=== PATIENT | male | born 1950 | race Caucasian/White ===

== ENCOUNTER → 2020-06-05 | Outpatient (CLI) | payer MEDICARE, OTHER ==
[~2020-06-05] MED LIST: ALBU2.5V8 IH; FEXO60TA10 PO; FINA5TAB4 PO; FLUT16SP21 NS; GABA-586 PO; IPRA3AMP29 NEB; LORA-254 PO; MAGN250T2 PO; NITR0.4T22 SL; OMEP20TA8 PO; POTA20PA30 PO; PRAV80TA2 PO; TAMS0.4C97 PO; VENL150T PO; ZOLP12.56 PO
== END ==
LOC: LAB 10:05
PROVIDERS: ATTEND Registered Nurse
DX: Z20.828 Contact with and (suspected) exposure to other viral communicable diseases (principal)
CPT/HCPCS: U0003-CS

== ENCOUNTER → 2020-06-09 | Day surgery (SDC) | payer MEDICARE, OTHER ==
[~2020-06-09] MED LIST changes: +CARV12.5 PO; +EPINEPHrine 30 MG/30 ML VIAL ONE; +IPRATRPIUM/ALBUTEROL 0.5/2.5MG 3 ML NEBU. NEB PRN; +IV RINGERS SOLUTION,LACTATED 1,000 ML IV SCH; +MIDAZOLAM HCL PF 2 MG/2 ML VIAL. IV ONE; +ONDANSETRON PF 4 MG/2 ML VIAL. IV PRN; +PROPOFOL 10,000 MCG/ML (20ML) VIAL IV ONE; +VALS1TAB28 PO
[2020-06-09 08:31] VITALS: BP 111/73
== END | disposition home or self-care (01) ==
LOC: SURG 06:29
PROVIDERS: ATTEND Emergency Medicine
DX: Z12.11 Encounter for screening for malignant neoplasm of colon (principal); D00.2 Carcinoma in situ of stomach; D37.9 Neoplasm of uncertain behavior of digestive organ, unspecified; K31.7 Polyp of stomach and duodenum; K64.0 First degree hemorrhoids; Z88.8 Allergy status to other drugs, medicaments and biological substances; Z79.899 Other long term (current) drug therapy
CPT/HCPCS: 43239; 43450; 45380; 88305; 88341; 88342; 88360; J2704; J7120

== ENCOUNTER 2021-05-27 04:49 | Inpatient (IN) | payer MEDICARE, OTHER ==
[~2021-05-27] VITALS: Ht 170.2 cm; Wt 97.6 kg
[~2021-05-27 04:49] MED LIST changes: -EPINEPHrine 30 MG/30 ML VIAL ONE; -IPRATRPIUM/ALBUTEROL 0.5/2.5MG 3 ML NEBU. NEB PRN; -IV RINGERS SOLUTION,LACTATED 1,000 ML IV SCH; -MIDAZOLAM HCL PF 2 MG/2 ML VIAL. IV ONE; -ONDANSETRON PF 4 MG/2 ML VIAL. IV PRN; -PROPOFOL 10,000 MCG/ML (20ML) VIAL IV ONE
[2021-05-27] MEDS ORDERED: DEXAMETHASONE SOD PHOS 10 MG/ML VIAL. IV ONE (05:00)
[2021-05-27] MEDS ORDERED: IV NORMAL SALINE 1,000ML 1,000 ML IV ONE (05:00)
--- NOTE | 2021-05-27 05:09 | PHYS DOC ---
Past History Past Medical History: Asthma, COPD, Hypertension Past Surgical History: No Surgical History Smoking: Quit Greater Than 1 Year Alcohol Use: None Drug Use: None General Adult EDM: Chief Complaint: SHORTNESS OF BREATH HPI: HPI: 70-year-old male with past medical history of COPD presents via EMS with report of progressive shortness of breath. Patient with history of recent COVID-19 positive result 2 weeks ago. Patient required admission to [place]. Reports was released approximately 1 week ago. Patient reports interval worsening of symptoms since discharge. Patient feels unwell. Denies recent smoking. Denies fever or chills. Denies trauma. Denies leg swelling or calf tenderness. EMS reports finding patient with low O2 sat down to 86% on RA. Patient denies use of supplemental O2 at home. Review of Systems: Review of Systems: Constitutional: Denies fever or chills; reports generalized malaise Eyes: Denies redness or eye pain HENT: Denies nasal congestion or sore throat Respiratory: Reports cough and shortness of breath Cardiovascular: Denies chest pain or palpitations GI: Denies abdominal pain, nausea, or vomiting : Denies dysuria or hematuria Musculoskeletal: Denies back pain or joint pain Integument: Denies rash or skin lesions Neurologic: Denies headache, focal weakness or sensory changes Complete systems were reviewed and found to be within normal limits, except as d ocumented in this note. Allergies: Allergies: Allergies Coded Allergies Type Severity Reaction Last Updated Verified atorvastatin Allergy Mild flushing 06/03/20 Yes ciprofloxacin Allergy Unknown 06/03/20 Yes Physical Exam: PE: Constitutional: Well developed, well nourished, disheveled, ill but non-toxic appearance HENT: Normocephalic, atraumatic Eyes: Conjunctiva normal, no discharge Neck: Normal range of motion, no tenderness, supple Lungs & Thorax: No respiratory distress, equal chest rise and fall, expiratory wheezes Abdomen: Soft, no tenderness Skin: Warm, dry, no erythema, no rash Back: No tenderness, no CVA tenderness Extremities: No tenderness, ROM intact, no edema Neurologic: Alert and oriented X 3, normal motor function, normal sensory function, no focal deficits noted Psychologic: Affect flat, judgment normal EKG: EKG: @0504 Sinus rhythm at 98bpm, t wave inversions to I, aVL, V2-V5, q wave in III and aVF, NO ST elevation, QRS 92ms, QT/QTc 344/441ms Radiology/Procedures: Radiology/Procedures: PROCEDURE: CT ANGIOGRAPHY CHEST CT angiography chest with contrast PQRS statement: CT scans at this facility use dose reduction including either automated exposure control, iterative reconstructions, and /or weight based r adiation dosing via mA and kV modification when appropriate to reduce radiation dose to as low as reasonably achievable. Contrast: 100 mL Omnipaque 350 intravenous contrast with 3-D MIP reconstructions of the arteries acquired. HISTORY: Shortness of breath, weakness, hypoxia, history of recent Covid infection. FINDINGS: Prominent tortuosity thoracic aorta, and calcified plaque. Ascending aorta diameter ectatic measuring 3.8 cm. Extensive coronary calcified plaque. Postoperative change of coronary bypass surgery. Mild cardiomegaly. Esophagus unremarkable. No adenopathy in the chest. There is limited contrast density within the small peripheral subpleural lobar pulmonary arterial branches may decrease sensitivity to detect very tiny emboli within these regions, in light of this no pulmonary artery emboli are evident. Trachea and bronchi are unremarkable. Extensive heterogeneous bilateral pulmonary opacities with both groundglass density as well as areas of consolidation. No pulmonary interstitial edema. No pleural effusions. Bones are unremarkable. IMPRESSION: 1. No pulmonary artery emboli. 2. Extensive bilateral pulmonary opacities with groundglass densities and areas of consolidation, given history of positive Covid infection, these imaging features are typical of Covid viral pneumonia. Electronically signed by: Nazario Mata MD (05/27/2021 6:11 AM) [facility] [place] Score: C/O Chest Pain: N/A Course & Med Decision Making: Course & Med Decision Making Pertinent Labs and Imaging studies reviewed. (See chart for details) Patient presents with progressive dyspnea upon discharge from [facility] 1 week ago after being positive for COVID-19. Patient also with underlying histor y of COPD as a former smoker. Patient had been hypoxic per EMS. Improved with supplemental O2. EKG stable. Labs obtained and posted to chart. CTA chest with findings consistent for COVID pneumonia. NO signs of PE noted. Patient requiring admission for further evaluation and treatment. Discussed with Dr. Martinez (hospitalist) who is in agreement with admission. Discussed findings and plan with patient, who acknowledges understanding and agreement. COVID-19 CRITERIA: The patient was evaluated during the global COVID-19 pandemic, and that diagnosis was suspected/considered upon their initial presentation. Their evaluation, treatment and testing was consistent with current guidelines for patients who present with complaints or symptoms that may be related to COVID-19. Dragon Disclaimer: Dragon Disclaimer: This electronic medical record was generated, in whole or in part, using a voice recognition dictation system. Departure Departure: Impression: Primary Impression: Pneumonia due to COVID-19 virus Additional Impressions: Hypoxia UTI (urinary tract infection) Qualified Codes: N30.01 - Acute cystitis with hematuria Hypokalemia Disposition: ADMITTED INPATIENT Admitting Physician: Rashid Martinez Condition: GUARDED Referrals: BREANNA TORO (PCP) COVID-19 Assessment COVID-19 Patient Risks: Age 65 or older: Yes Sign of co-morbidity: Yes Exp to person + for COVID: Yes Exp to PUI: No Travel from affected area: No Lower respiratory symptoms: Yes Fever: No Other: Yes PPE Use: Full PPE with N95 mask or PAPR: Yes Critical Care Time Critical care time was 30 minutes which includes time at bedside, spent in discussion of patient's care with specialists and/or family members, with interpretation of laboratory and/or radiological studies and is exclusive of procedures. SCAR AWAD DO May 27, 2021 05:09
[2021-05-27] MEDS ORDERED: CONTRAST GIVEN. MC PRN (05:15)
[2021-05-27] MEDS ORDERED: IOHEXOL 350 MG/ML 100 ML VIAL. IV ONE (05:15)
[2021-05-27 05:23] LABS: BASO % 0 % (0-3); EOS # 0.1 x10^3/uL (0.0-0.7); EOS % 0 % (0-3); HEMATOCRIT 41.4 % (39.0-53.0); HEMOGLOBIN 13.6 g/dL (13.0-17.5); LYMPH % 9 % (24-48); MEAN CORPUSCULAR HEMOGLOBIN 29 pg (25-35); MEAN CORPUSCULAR HGB CONC 33 g/dL (31-37); MEAN CORPUSCULAR VOLUME 89 fL (79-100); MONO # 0.8 x10^3/uL (0.0-1.1); MONO % 8 % (0-9); NEUT # 9.4 x10^3uL (1.8-7.7); NEUT % 83 % (31-73); PLATELET COUNT 240 x10^3/uL (140-400); RED BLOOD COUNT 4.65 x10^6/uL (4.30-5.70); RED CELL DISTRIBUTION WIDTH 14.8 % (11.5-14.5); WHITE BLOOD COUNT 11.3 x10^3/uL (4.0-11.0)
[2021-05-27 05:30] LABS: CALCIUM 8.5 mg/dL (8.5-10.1); CREATININE 1.1 mg/dL (0.7-1.3); GFR 66.4; POTASSIUM 3.4 mmol/L (3.5-5.1)
[2021-05-27 05:37] LABS: % BANDS 6 % (0-9); % LYMPHS 9 % (24-48); % MONOS 4 % (0-10); % SEGS 81 % (35-66); PLT ESTIMATE ADEQUATE (ADEQUATE)
[2021-05-27 05:47] LABS: ALBUMIN 3.2 g/dL (3.4-5.0); ALBUMIN/GLOBULIN RATIO 0.9 (1.0-1.7); MAGNESIUM 2.3 mg/dL (1.8-2.4); TOTAL BILIRUBIN 0.8 mg/dL (0.2-1.0); TOTAL PROTEIN 6.7 g/dL (6.4-8.2)
--- NOTE | 2021-05-27 06:14 | RAD ---
CT angiography chest with contrast PQRS statement: CT scans at this facility use dose reduction including either automated exposure cont rol, iterative reconstructions, and /or weight based radiation dosing via mA and kV modification when appropriate to reduce radiation dose to as low as reasonably achievable. Contrast: 100 mL Omnipaque 350 intravenous contrast with 3-D MIP reconstructions of the arteries acqu ired. HISTORY: Shortness of breath, weakness, hypoxia, history of recent Covid infection. FINDINGS: Prominent tortuosity thoracic aorta, and calcified plaque. Ascending aorta diameter ectatic measuring 3.8 cm. Extensive coronary calcified plaque. Postoperative change of coronary bypass surge ry. Mild cardiomegaly. Esophagus unremarkable. No adenopathy in the chest. There is limited contrast density within the small peripheral subpleural lobar pulmonary arterial branches may decrease sensiti vity to detect very tiny emboli within these regions, in light of this no pulmonary artery emboli are evident. Trachea and bronchi are unremarkable. Extensive heterogeneous bilateral pulmonary opacities with both groundglass density as well as areas of consolidation. No pulmonary interstitial edema. No pleural effusions. Bones are unremarkable. IMPRESSION: 1. No pulmonary artery emboli. 2. Extensive bilateral pulmonary opacities with groundglass densities and areas of consolidation, giv en history of positive Covid infection, these imaging features are typical of Covid viral pneumonia. Electronically signed by: Nazario Mata MD (05/27/2021 6:11 AM) [facility]
[2021-05-27] MEDS ORDERED: IV NORMAL SALINE 50ML 50 ML ONE (06:30)
[2021-05-27] MEDS: AZITHROMYCIN 500 MG in IV NORMAL SALINE 250ML 250 ML IV ONE ×2 (06:30→07:30)
[2021-05-27] MEDS ORDERED: PIPERACILLIN/TAZOBACTAM 4.5 GM VIAL IV ONE (06:30)
[2021-05-27] MEDS: PIPERACILLIN/TAZOBACTAM 4.5 GM in IV NORMAL SALINE 50ML 50 ML IV ONE ×2 (06:30→06:42)
[2021-05-27 06:33] LABS: BILIRUBIN,URINE NEG (NEG); CLARITY,URINE HAZY; COLOR,URINE YELLOW; GLUCOSE,URINE NEG (NEG)
[2021-05-27 06:34] LABS: AMORPHOUS SEDIMENT,UR PRESENT /HPF; BACTERIA,URINE 0 /HPF (0-FEW); NITRITE,URINE POS (NEG); SQUAMOUS EPITHELIAL CELL,UR OCC /LPF; UROBILINOGEN,URINE 0.2 mg/dL (0.2 mg/dL)
[2021-05-27] MEDS ORDERED: ONDANSETRON PF 4 MG/2 ML VIAL. IVP PRN (07:00)
[2021-05-27] MEDS ORDERED: IV NORMAL SALINE 250ML 250 ML ONE ×2 (07:04→07:06)
[2021-05-27] MEDS ORDERED: AZITHROMYCIN 500 MG VIAL. IV ONE (07:05)
[2021-05-27] MEDS: ACETAMINOPHEN 325 MG TABLET PO PRN ×2 (07:30→21:16)
[2021-05-27] MEDS ORDERED: POTASSIUM CHLORIDE 20 MEQ TABLET.ER. PO ONE (07:30)
[2021-05-27] MEDS ORDERED: NITROGLYCERIN SUBLINGUAL 0.4 MG BOTTLE OF 25. SL PRN (11:00)
--- NOTE | 2021-05-27 11:01 | HP ---
ADMIT DATE: 05/27/2021 ATTENDING PHYSICIAN: Dr. Martinez. CHIEF COMPLAINT: Shortness of breath. HISTORY OF PRESENT ILLNESS: The patient is a 70-year-old gentleman normally a [facility] patient. He has longstanding COPD. He was diagnosed with COVID pneumonia 2 weeks ago. He stayed at the hospital in [place] at the [facility] for a week. He was discharged home. He was not on supplemental oxygen. He now has worsening dyspnea. He states he is not a smoker, but his history is questionable. 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 Oxygen saturation was marginal at 86% on room air. He had a followup CT of the chest to rule out blood clot; however, ground glass appearance and diffuse infiltrates in both bases remain. He is admitted then with an exacerbation of COPD and acute on chronic respiratory failure, aggravated by recent COVID exposure. PAST MEDICAL HISTORY: Significant for the stroke. He also is disabled. He has essential hypertension. He was a heavy smoker. He also has coronary artery disease with 4-vessel bypass in 2016 at [facility]. He does not know the surgeon nor does he know the assistant manager quality management. CURRENT MEDICATIONS: Reviewed. ALLERGIES: HE HAS ALLERGIES TO ATORVASTATIN, CIPROFLOXACIN, EXACT REACTION IS UNCLEAR. He was scheduled to get albuterol, Coreg, [place], finasteride, fluticasone, Neurontin, p.r.n. lorazepam, magnesium, nitroglycerin p.r.n., omeprazole, potassium, pravastatin, Flomax, valsartan, hydrochlorothiazide, Effexor and zolpidem. SOCIAL HISTORY: Smoking history as noted. Drinking history, remotely in the past. FAMILY HISTORY: Mom of old age, according to him at age 81. Father of COPD and respiratory failure at age 72. He is single. His children are grown and he does not have much contact. He lives alone. REVIEW OF SYSTEMS: Significant for the recent COVID infection, treated with hospitalization in [place], [place]. All other systems reviewed and turned to be negative. PHYSICAL EXAMINATION: GENERAL: When I saw him this is a chronically ill-appearing gentleman. INITIAL VITAL SIGNS: Showed a blood pressure of 136/78 mmHg, oxygen saturation 93% on 4 liters by nasal cannula, pulse is 92 and regular. He is afebrile. HEENT: Head is without trauma. Pupils are reactive. Sclerae nonicteric. The oropharynx is clear. 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 NECK: Supple, no bruits identified. LUNGS: Clear. He has minimal rhonchi in the upper airways. CARDIOVASCULAR: Showed regular heart tones. No gallops. ABDOMEN: Soft. EXTREMITIES: He has trace pedal edema. NEUROLOGIC: Function is flat affect, very slow in his responses. PERTINENT LABORATORY AND X-RAY STUDIES: CT of the chest as noted. Admission hemoglobin was 13.6 g/dL with a white count of 11,300. Electrolytes show normal sodium and potassium. Creatinine is 1.1 mg/dL. Cardiac enzymes negative for coronary ischemia. Transaminases fairly unremarkable. Lactate level was normal. ASSESSMENT: 1. A 70-year-old gentleman with acute on chronic respiratory failure. 2. Exacerbation of chronic obstructive pulmonary disease. 3. Recent COVID infection. 4. Coronary artery disease with previous 4-vessel bypass and graft. 5. 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 PLAN: 1. Admit to the inpatient unit. 2. Telemetry monitoring. 3. Intravenous corticosteroids. I recommended 60 mg every 8 hours. 4. Nebulizer therapy. 5. Continue home meds. RANDY/LANCE DR: Kait TID: [id number]
--- NOTE | 2021-05-27 11:15 | EKG ---
[address] [address] Test Date: 2021-05-27 Test Time: 05:04:00 Pat Name: ЕКАТЕРИНА GUILLEN Department: Room: Gender: M Cigarette Tester: : 1950 Requested By: SCAR AWAD Order Number: [id number] Reading MD: Measurements Intervals [place] Rate: 98 P: 18 [place]: 152 QRS: 24 QRSD: 92 T: 138 QT: 344 QTc: 441 Interpretive Statements SINUS RHYTHM QRS(T) CONTOUR ABNORMALITY CONSISTENT WITH INFERIOR INFARCT PROBABLY OLD ST & T ABNORMALITY, CONSIDER ANTERIOR ISCHEMIA OR LEFT VENTRICULAR STRAIN HIGH LATERAL ISCHEMIA OR LEFT VENTRICULAR STRAIN ABNORMAL ECG RI6.02 No previous ECG available for comparison
[2021-05-27] MEDS: FLUTICASONE 50MCG/NASAL SPRAY 16GM BOTTLE. NS SCH (11:54)
[2021-05-27] MEDS: CETIRIZINE HCL 10 MG TABLET PO SCH (11:54)
[2021-05-27] MEDS: FINASTERIDE 5 MG TABLET. PO SCH (11:54)
[2021-05-27] MEDS: PANTOPRAZOLE 40 MG TABLET. PO SCH (11:54)
[2021-05-27] MEDS: GABAPENTIN 300 MG CAPSULE. PO SCH (11:54)
[2021-05-27] MEDS: IPRATRPIUM/ALBUTEROL 0.5/2.5MG 3 ML NEBU. NEB SCH ×3 (12:00→20:00)
[2021-05-27] MEDS: methylPREDNISolone SOD SUCC PF 125 MG/2 ML VIAL. IV SCH ×2 (16:46→21:17)
[2021-05-27] MEDS: CARVEDILOL 12.5 MG TABLET PO SCH (16:47)
[2021-05-27 19:25] VITALS: BP 124/75
[2021-05-27] MEDS: NON FORMULARY ITEM (Pravastatin Sodium 1 TAB) PO SCH (21:00)
[2021-05-27] MEDS: ZOLPIDEM 5 MG TABLET. PO PRN (21:16)
[2021-05-27 23:20] VITALS: BP 147/94
[2021-05-28 03:25] VITALS: BP 132/76
[2021-05-28] MEDS: methylPREDNISolone SOD SUCC PF 125 MG/2 ML VIAL. IV SCH ×3 (05:04→20:46)
[2021-05-28 06:20] VITALS: BP 143/85
[2021-05-28] MEDS: FINASTERIDE 5 MG TABLET. PO SCH (08:11)
[2021-05-28] MEDS: TAMSULOSIN 0.4 MG CAP.ER.24H. PO SCH (08:11)
[2021-05-28] MEDS: hydroCHLOROthiazide 12.5 MG CAPSULE PO SCH (08:11)
[2021-05-28] MEDS: LOSARTAN 50 MG TABLET. PO SCH (08:12)
[2021-05-28] MEDS: CETIRIZINE HCL 10 MG TABLET PO SCH (08:13)
[2021-05-28] MEDS: POTASSIUM CHLORIDE 20 MEQ TABLET.ER. PO SCH (08:13)
[2021-05-28] MEDS: GABAPENTIN 300 MG CAPSULE. PO SCH (08:13)
[2021-05-28] MEDS: PANTOPRAZOLE 40 MG TABLET. PO SCH (08:13)
[2021-05-28] MEDS: CARVEDILOL 12.5 MG TABLET PO SCH ×2 (08:14→17:00)
[2021-05-28] MEDS: IPRATRPIUM/ALBUTEROL 0.5/2.5MG 3 ML NEBU. NEB SCH ×4 (08:14→20:46)
[2021-05-28] MEDS: FLUTICASONE 50MCG/NASAL SPRAY 16GM BOTTLE. NS SCH (08:14)
[2021-05-28] MEDS: LORazepam 1 MG TABLET PO SCH ×2 (08:48→20:46)
[2021-05-28] MEDS ORDERED: [UNRECOGNIZED DRUG - OTHER] PO SCH (09:00)
[2021-05-28] MEDS ORDERED: VALSARTAN PO SCH (09:00)
[2021-05-28] MEDS ORDERED: HYDROCHLOROTHIAZIDE PO SCH (09:00)
[2021-05-28 11:19] VITALS: BP 141/73
[2021-05-28 15:46] VITALS: BP 123/73
[2021-05-28 19:20] VITALS: BP 142/76
[2021-05-28] MEDS: NON FORMULARY ITEM (Pravastatin Sodium 1 TAB) PO SCH (20:45)
[2021-05-28] MEDS: ZOLPIDEM 5 MG TABLET. PO PRN (20:46)
--- NOTE | 2021-05-28 22:21 | PN ---
DATE: 05/28/2021 ATTENDING PHYSICIAN: Dr. Martinez. SUBJECTIVE: Breathing better. He is comfortable. He denied any further cough. He is hoarse from coughing. OBJECTIVE FINDINGS: VITAL SIGNS: Blood pressure this morning was 141/73. He is afebrile, pulse 83 and regular, oxygen saturation after taking it off he is maintaining saturations of 90-95% on room air. HEENT: Head is without trauma. Pupils are reactive. Sclerae nonicteric. Oropharynx is clear. NECK: Supple, no bruits identified. LUNGS: Good breath sounds. CARDIOVASCULAR: Regular heart tones. ABDOMEN: Soft. EXTREMITIES: Without edema. NEUROLOGIC FINDINGS: Focally intact. He is blind in the right eye. ASSESSMENT: 1. A 70-year-old gentleman with acute on chronic respiratory failure, improved. 2. Exacerbation of chronic obstructive pulmonary disease, improved. 3. Recent COVID infection, resolved. 4. Coronary bypass with previous 4-vessel bypass and graft. 5. History of embolic stroke involving the right central retinal artery. PLAN: 1. We will wean down his oxygen supplementation. 2. Continue telemetry monitoring. 3. Continue steroids. 4. Discharge planning soon. ROSA DR: RANDY/graham TID: [id number]
[2021-05-28 23:20] VITALS: BP 150/87
[2021-05-29 05:37] VITALS: BP 132/72
[2021-05-29] MEDS: methylPREDNISolone SOD SUCC PF 125 MG/2 ML VIAL. IV SCH (06:04)
[2021-05-29] MEDS: IPRATRPIUM/ALBUTEROL 0.5/2.5MG 3 ML NEBU. NEB SCH ×2 (08:00→09:40)
[2021-05-29] MEDS: hydroCHLOROthiazide 12.5 MG CAPSULE PO SCH (08:04)
[2021-05-29 08:05] VITALS: BP 132/72
[2021-05-29] MEDS: CARVEDILOL 12.5 MG TABLET PO SCH (08:05)
[2021-05-29] MEDS: CETIRIZINE HCL 10 MG TABLET PO SCH (08:05)
[2021-05-29] MEDS: TAMSULOSIN 0.4 MG CAP.ER.24H. PO SCH (08:05)
[2021-05-29] MEDS: LOSARTAN 50 MG TABLET. PO SCH (08:05)
[2021-05-29] MEDS: POTASSIUM CHLORIDE 20 MEQ TABLET.ER. PO SCH (08:05)
[2021-05-29] MEDS: GABAPENTIN 300 MG CAPSULE. PO SCH (08:05)
[2021-05-29] MEDS: FINASTERIDE 5 MG TABLET. PO SCH (08:05)
[2021-05-29] MEDS: LORazepam 1 MG TABLET PO SCH (08:05)
[2021-05-29] MEDS: FLUTICASONE 50MCG/NASAL SPRAY 16GM BOTTLE. NS SCH (08:06)
[2021-05-29] MEDS: PANTOPRAZOLE 40 MG TABLET. PO SCH (08:06)
[2021-05-29] MEDS ORDERED: NYSTATIN 100,000 UNITS/ML ORAL SUSPENSION 60ML BOTTLE. SWSW SCH (11:05)
--- NOTE | 2021-05-29 11:33 | DS ---
DATE OF DISCHARGE: 05/29/2021 ATTENDING PHYSICIAN: Dr. Martinez. FINAL DISCHARGE DIAGNOSES: 1. Acute on chronic respiratory failure, improved. 2. Exacerbation of chronic obstructive pulmonary disease. 3. Recent COVID-19 infection. 4. History of coronary artery bypass and graft for coronary artery disease. 5. History of embolic stroke involving the right central retinal artery. HISTORY AND PHYSICAL: The patient is a pleasant 70-year-old gentleman normally seen at the [facility]. He came in with increasing shortness of breath and hypoxemia consistent with exacerbation of COPD and chronic respiratory failure. PHYSICAL EXAMINATION: Please see the dictated note. PERTINENT LABORATORY AND X-RAY STUDIES: Admission hemoglobin was 13.6 g/dL with a white count of 11,300. Electrolytes were within normal range. Nonfasting blood sugar 114. Transaminases normal. Lactic acid normal and his cardiac enzymes are negative for coronary ischemia. He had a CT angiogram of the chest, which showed no evidence of pulmonary embolus; however, he has extensive bilateral pulmonary opacities with ground glass densities and areas of consolidation related to recent COVID infection. COURSE IN THE HOSPITAL: The patient was admitted. He was started on supplemental oxygen and empiric antibiotics. The COVID infection is too far remote to warrant any type of therapy. There really is no good therapy at this time. Home medications were continued. He did well. Oxygen was able to wean down and prior to discharge on the third hospital day, he had adequate saturations of 90% on room air, which is excellent given his underlying COPD. He felt comfortable. There was a microbiology report to one of four blood cultures drawn from the ED tested positive. ID and sensitivity is pending for supposedly a gram-negative carmela. I suspect this is a contaminant. In any event, he does not need to stay here until this is returned. He is clinically doing well. On the third hospital day, his vital signs were quite stable. He was afebrile. His lungs were clear. He was oxygenating well. He was ready for discharge. At this time, I recommend followup visit at the [facility] in 2 weeks. I wrote a script for prednisone 40 mg p.o. daily for the next 7 days and then stop. In addition, he should continue his regularly scheduled drugs through the [facility] including the following: He should continue his albuterol and Atrovent inhalers, Coreg 12.5 mg b.i.d., fexofenadine, finasteride, Neurontin 300 mg daily, lorazepam p.r.n., magnesium, nitroglycerin p.r.n., omeprazole, potassium, pravastatin, Flomax, valsartan, hydrochlorothiazide, and Ambien dose is unchanged. He was discharged then from our hospital in stable condition with explicit drug and followup care. Total discharge time spent [address]: Kait TID: [id number] CC: [facility]
== END 2021-05-29 11:33 | disposition home or self-care (01) | DRG 189 ==
LOC: ER 04:49 → ICU 06:46
PROVIDERS: ADMIT Hospitalist; ATTEND Hospitalist
PROC: 5A0935A Assistance with Respiratory Ventilation, Less than 24 Consecutive Hours, High Flow/Velocity Cannula (ICD-10-PCS; principal; 2021-05-29)
DX: J96.21 Acute and chronic respiratory failure with hypoxia (principal); J44.1 Chronic obstructive pulmonary disease with (acute) exacerbation; N39.0 Urinary tract infection, site not specified; I10 Essential (primary) hypertension; E87.6 Hypokalemia; I25.10 Atherosclerotic heart disease of native coronary artery without angina pectoris; Z95.1 Presence of aortocoronary bypass graft; Z87.891 Personal history of nicotine dependence; Z86.73 Personal history of transient ischemic attack (TIA), and cerebral infarction without residual deficits; Z82.5 Family history of asthma and other chronic lower respiratory diseases; Z79.899 Other long term (current) drug therapy; Z88.1 Allergy status to other antibiotic agents; Z86.16 Personal history of COVID-19
CPT/HCPCS: 36415; 71275; 80053; 81001; 82553; 83605; 83735; 83880; 84484; 85007; 85025; 87040; 87077; 87086; 87205; 93005; 94640; 96361; 96365; 96375; J0456; J1100; J2543; J2930; J7050; Q9967; 97110; 99291-25; J7030